=== PATIENT | male | born 1965 | race Caucasian/White ===

== ENCOUNTER 2022-04-23 07:30 | Outpatient (NON) | payer OTHER, SELFPAY | END 2022-04-23 07:31 | disposition home or self-care (01) | LOC: ANHLAB 04-24 07:26 | PROVIDERS: PCP Family Medicine; Visit Provider Internal Medicine Gastroenterology | DX: K22.70 Barrett's esophagus without dysplasia (principal) | CPT/HCPCS: 88305 ==

== ENCOUNTER 2022-04-23 09:44 | Day surgery (SDC) | payer OTHER, SELFPAY ==
[2022-01-13 15:26] VITALS: BMI 25.1
[2022-04-11 09:30] VITALS: BMI 25.4
--- NOTE | 2022-04-22 07:57 | PM.HPGS ---
History of Present Illness History of Present Illness Consent: Risks, benefits, and alternatives have been discussed and questions answered. Patient agrees to proceed with procedure. Chief complaint: Leal's Esophagus and History of Colon Polyp Narrative: Barry Herrera is a 56 year old male with history of Leal's esophagus and also colon polyps. He has been diagnosed with Leal's epithelium. There was no dysplasia at the time of his last examination 4 years ago. He also had a polyp removed when he had colonoscopy 6 years ago. Review of Systems Review of Systems: All systems reviewed & are unremarkable except as noted in HPI and below PMFSH Past Medical History Medical History Asthma Hyperlipidemia Smoker Surgical History Surgical History H/O arthroscopic knee surgery H/O colonoscopy History of esophagogastroduodenoscopy (EGD) Social History Social History Alcohol intake: former Substance use type: does not use Living arrangements: alone Spiritual care concerns: No Meds Home Medications and Allergies Home Medications Medication Instructions Recorded Confirmed Type albuterol sulfate 90 mcg/actuation 90 mcg inhalation PRN PRN 04/11/22 04/23/22 History aerosol inhaler Shortness Of Breath Or Wheezing bupropion HCl 150 mg tablet,12 hr 150 mg PO DAILY 04/11/22 04/23/22 History sustained-release fluoxetine 20 mg capsule 20 mg PO DAILY 04/11/22 04/23/22 History rosuvastatin 5 mg tablet 5 mg PO DAILY 04/11/22 04/23/22 History Allergies Allergy/AdvReac Type Severity Reaction Status Date / Time Penicillins Allergy Unknown Unknown Verified 04/23/22 11:02 Exam Const: General: alert Orientation/consciousness: patient oriented x3 Resp: Auscultation: clear to auscultation bilaterally Cardio: Rhythm: regular rhythm GI: GI Palp: Yes Soft to palpation and No Tenderness to palpation present (GI) Neuro: General: patient oriented x3 Assessment and Plan Assessment and plan (1) Lael's esophagus: Code(s): K22.70 - Leal's esophagus without dysplasia Status: Acute Assessment and Plan: EGD with possible biopsy or dilatation or cautery. (2) Colon cancer screening: Code(s): Z12.11 - Encounter for screening for malignant neoplasm of colon Status: Acute Assessment and Plan: Colonoscopy with possible biopsy or polypectomy or cautery or injection of substances.
[2022-04-23 11:05] VITALS: BMI 25.0
--- NOTE | 2022-04-23 11:43 | P.PNAN_ITS ---
Anes - Initial Pre Proc Eval Procedure: Operation Date: 04/23/22 12:00 Proposed Procedures p Esophagogastroduodenoscopy - Nitish Angel MD s Screening Colonoscopy - Nitish Angel MD Date/Time: 04/23/22 11:43 Surgeon: Nitish Angel MD Pre Op Diagnosis: Leal's Esophagus and History of Colon Polyp Patient Data Age: 56 Gender: M Height: 1.75 m Weight: 77 kg Allergies Allergy/AdvReac Type Severity Reaction Status Date / Time Penicillins Allergy Unknown Unknown Verified 04/23/22 11:02 Home Medications Medication Instructions Recorded Confirmed Type albuterol sulfate 90 mcg/actuation 90 mcg inhalation PRN PRN 04/11/22 04/23/22 History aerosol inhaler Shortness Of Breath Or Wheezing bupropion HCl 150 mg tablet,12 hr 150 mg PO DAILY 04/11/22 04/23/22 History sustained-release fluoxetine 20 mg capsule 20 mg PO DAILY 04/11/22 04/23/22 History rosuvastatin 5 mg tablet 5 mg PO DAILY 04/11/22 04/23/22 History Patient hx anesthesia problems: none Family hx anesthesia problems: none Results Review: All pre-operative results and documents have been reviewed as part of the pre- operative evaluation. [facility] Past Medical History Medical History Asthma Hyperlipidemia Smoker Surgical History Surgical History (Updated 04/23/22 @ 11:47 by Terence Mckeon MD) H/O arthroscopic knee surgery H/O colonoscopy History of esophagogastroduodenoscopy (EGD) Social History Social History Alcohol intake: former Substance use type: does not use Living arrangements: alone Spiritual care concerns: No Anes - Eval Final PreProcedure Day of Procedure 04/23/22 11:43 Patient weight: normal Heart: regular rate and rhythm Lungs: clear to auscultation Airway: Mallampati scale class II and special considerations retrognathia Neurological: alert and oriented Last oral intake: >/= 8 hours Emergent: no Anesthetic plan: proceed Anesthesia type and monitoring: general GIVS and standard monitoring Results Review: All pre-operative results and documents have been reviewed as part of the pre- operative evaluation. Informed Consent: The patient's anesthetic plan and its attendant risks and benefits were discussed with the patient/family/POA. Questions were solicited and answers provided to the satisfaction of the patient/family/POA.
[2022-04-23 11:55] VITALS: BP 127/89; PULSE 85; RESP 16; TEMP 36.8; O2SAT 100
[2022-04-23] MEDS: LACTATED RINGERS 1,000 ML 150 ML IV CONT (11:58)
[2022-04-23 12:28] VITALS: BP 93/82; PULSE 80; RESP 14; O2SAT 98
[2022-04-23 12:38] VITALS: BP 94/69; PULSE 72; RESP 14; O2SAT 99
--- NOTE | 2022-04-23 12:47 | WPDANESPN ---
Anes - Prog Note Post-Op Date/Time: 04/23/22 12:47 Cardiovascular status: normal Respiratory status: normal Airway patency: baseline Mental status: baseline Post-Op hydration status: normal Vital Signs: Last Vital Signs Temp 36.8 C 04/23/22 11:55 Pulse 72 04/23/22 12:38 Resp 14 04/23/22 12:38 BP 94/69 L 04/23/22 12:38 Pulse Ox 99 04/23/22 12:38 O2 Del Method Room Air 04/23/22 12:38 Pain Score (VAS): 0/10 I/O: Intake & Output 04/22/22 04/23/22 04/23/22 23:59 07:59 15:59 Intake Total 300 Balance 300 Patient Feedback: Patient satisfied with anesthetic care.
[2022-04-23 12:48] VITALS: BP 124/92; PULSE 68; RESP 13; O2SAT 100
== END 2022-04-23 13:19 | disposition home or self-care (01) ==
PROVIDERS: PCP Family Medicine; Visit Provider Internal Medicine Gastroenterology
PROC: 0DJ08ZZ Inspection of Upper Intestinal Tract, Via Natural or Artificial Opening Endoscopic (ICD-10-PCS; CPT 43235; principal; 2022-04-23 12:00)
PROC: 0DJD8ZZ Inspection of Lower Intestinal Tract, Via Natural or Artificial Opening Endoscopic (ICD-10-PCS; CPT 45378; 2022-04-23 12:00)
DX: Z12.11 Encounter for screening for malignant neoplasm of colon (principal)
CPT/HCPCS: 45378; 43239